=== PATIENT | female | born 1960 | race African-American/Black ===

== ENCOUNTER 2025-03-23 11:53 | Emergency (ER) | payer OTHER ==
[~2025-03-23] VITALS: Ht 170.2 cm; Wt 68.0 kg
[2025-03-23 11:57] VITALS: O2SAT 99
[2025-03-23] MEDS ORDERED: FAMOTIDINE 20MG/2ML VIAL IV ONE (12:15)
[2025-03-23 12:36] VITALS: TEMP 35.7
[2025-03-23] MEDS: SODIUM CHLORIDE 0.9% 1,000 ML IV ONE (12:38)
[2025-03-23] MEDS: KETOROLAC 30MG/ML VIAL IV STA (12:49)
[2025-03-23] MEDS: ONDANSETRON HCL 4MG/2ML INJ IV STA (12:49)
[2025-03-23 13:07] LABS: CREATININE 0.7 mg/dL (0.6-1.0)
[2025-03-23 13:08] LABS: BASOPHILS % 0.7 % (0.0-2.0); EOSINOPHILS % 1.8 % (0.0-5.0); ETHANOL BLOOD < 10 mg/dL (<10); HEMATOCRIT. 45.6 % (36.0-48.0); HEMOGLOBIN. 15.2 g/dL (12.0-16.0); LYMPHOCYTES % 12.7 % (20.0-50.0); MEAN PLATELET VOLUME 8.7 fl (7.4-10.4); MONOCYTES % 9.8 % (2.0-8.0); NEUTROPHILS % 75.0 % (40.0-76.0); PLATELET 163 x1000/uL (130-400); RED BLOOD CELL COUNT 5.07 mill/uL (4.2-5.4); RED CELL DISTRIBUTION WIDTH 14.8 % (11.6-14.6); TROPONIN I HIGH SENSITIVITY < 4 ng/L (3.0-34); UREA NITROGEN BLOOD 13 mg/dL (9-23)
[2025-03-23 13:09] LABS: ASPARTATE AMINOTRANSFERASE 25 IU/L (<34)
[2025-03-23 13:10] LABS: BILIRUBIN DIRECT 0.3 mg/dL (<=3.0); BILIRUBIN TOTAL 0.8 mg/dL (0.1-1.0); PROTEIN TOTAL 7.9 g/dL (6.0-8.3)
[2025-03-23] MEDS: FAMOTIDINE 20MG/2ML VIAL IV NR (13:38)
[2025-03-23 14:07] LABS: CLARITY URINE TURBID (CLEAR); COLOR URINE DARK YELLOW (YELLOW); GLUCOSE URINE NEGATIVE (NEGATIVE); KETONES URINE TRACE (NEGATIVE); LEUKOCYTE ESTERASE URINE 1+ (NEGATIVE); NITRITE URINE NEGATIVE (NEGATIVE); OCCULT BLOOD URINE TRACE (NEGATIVE); PH URINE 5.5 (4.5-8.0); PROTEIN URINE 1+ (NEGATIVE); SPECIFIC GRAVITY URINE 1.028 (1.005-1.030); UROBILINOGEN URINE 1.0 E.U./dL (0.2-1.0)
[2025-03-23 14:32] LABS: HYALINE CASTS URINE TNTC /lpf; MUCUS URINE 3+ /lpf (< = 2+); SQUAMOUS EPITHELIAL CELL URINE 1+ /lpf (RARE/1+); WBC URINE 0-2 /hpf (0-2)
[2025-03-23 14:33] LABS: RBC URINE NONE SEEN /hpf (0-2)
[2025-03-23 14:34] LABS: BACTERIA URINE 1+; CALCIUM OXALATE CRYSTALS URINE 3+ /lpf
[2025-03-23] MEDS: ONDANSETRON HCL 4MG/2ML INJ IV NR (15:40)
[2025-03-23] MEDS: ACETAMINOPHEN 500MG TABLET PO NR (15:42)
[2025-03-23] MEDS ORDERED: TAMS-54 MT (15:54)
[2025-03-23] MEDS ORDERED: ONDA-239 PO (15:54)
[2025-03-23] MEDS ORDERED: IBUP-2029 MT (15:54)
[2025-03-23 16:08] VITALS: BP 135/90; PULSE 80; RESP 12; O2SAT 98
== END 2025-03-23 16:09 | disposition home or self-care (01) ==
LOC: ER 11:53
DX: B34.9 Viral infection, unspecified (principal); F41.9 Anxiety disorder, unspecified
CPT/HCPCS: 80076; 80048; 81003; 80320; 83690; 85025; 84484; 36415; 71045; 96361; 96374; 96375; 96376; 99284; J1308; J1885; J2405; J7030; Z7610; G0480